=== PATIENT | female | born 1990 | race Caucasian/White ===

== ENCOUNTER 2018-06-27 15:56 | Outpatient (REF) | payer OTHER, SELFPAY ==
--- NOTE | 2018-06-27 14:00 | CER_PTH ---
PATIENT: Angelina Interiano LOC: [facility] U#:[id number] AGE/SX: 27/F ROOM: RE06/27/[address]: Renata Mao : 1990 BED: DIS: 06/27/2018 SPEC #: [id number] RECD: 06/27/18 18:04 STATUS: CICI REDre #: [id number] ANAIS: 06/27/18 14:[address]: Renata Mao DEPT: Surgical Specimen RECD BY: Jocelynn Vega ENTERED: 06/27/18 18:05 SP TYPE: CER JOCELYN DR: Unknown,Unknown Tissues: 1 - CERVICAL BIOPSY 2 - CERVICAL BIOPSY 3 - ENDOCERVICAL BX/CURRETTE Procedures: GROSS AND MICRO LEVEL 4 Comments: [id number]
== END 2018-06-27 15:57 ==
LOC: LBN 15:56
PROVIDERS: Visit Provider Obstetrics & Gynecology Gynecology
DX: N72 Inflammatory disease of cervix uteri (principal); Z87.410 Personal history of cervical dysplasia
CPT/HCPCS: 88305

== ENCOUNTER 2019-03-12 11:42 | Outpatient (REF) | payer OTHER, SELFPAY ==
--- NOTE | 2019-03-12 10:40 | PAPFT_PTH ---
PATIENT: Angelina Interiano LOC: [facility] U#:[id number] AGE/SX: 28/F ROOM: RE03/12/[address]: Renata Mao : 1990 BED: DIS: 03/12/2019 SPEC #: [id number] RECD: 03/12/19 13:03 STATUS: CICI REDre #: [id number] ANAIS: 03/12/19 10:[address]: Renata Mao DEPT: [facility] Cytology RECD BY: Jocelynn Vega ENTERED: 03/12/19 13:03 SP TYPE: PAPFT JOCELYN DR: Unknown,Unknown Tissues: 1 - CX/ENDOCX FOR PAP SMEARS Procedures: PAP THIN PREP/UVM Screening HPV DNA PROBE Comments: [id number]
[2019-03-13 14:25] LABS: Chlamydia Result Negative; GC Result Negative; Specimen Description CERVIX
== END 2019-03-12 12:02 ==
LOC: LBN 11:42
PROVIDERS: Visit Provider Obstetrics & Gynecology Gynecology
DX: Z11.3 Encounter for screening for infections with a predominantly sexual mode of transmission (principal); Z12.4 Encounter for screening for malignant neoplasm of cervix; Z11.51 Encounter for screening for human papillomavirus (HPV)
CPT/HCPCS: 87491; 87591; 88142; 87624

== ENCOUNTER 2019-07-30 16:47 | Outpatient (REF) | payer OTHER, SELFPAY | END 2019-07-30 17:07 | LOC: LBN 16:47 | PROVIDERS: Visit Provider Nurse Practitioner Family | DX: R30.0 Dysuria (principal) | CPT/HCPCS: 87086 ==

== ENCOUNTER 2020-05-06 11:51 | Outpatient (REF) | payer OTHER, SELFPAY ==
--- NOTE | 2020-05-06 11:00 | PAPFT_PTH ---
PATIENT: Angelina Interiano LOC: [facility] U#:[id number] AGE/SX: 29/F ROOM: RE05/06/[address]: Maddi Mejía NP : 1990 BED: DIS: 05/06/2020 SPEC #: [id number] RECD: 05/06/20 17:36 STATUS: CICI HAAS #: [id number] ANAIS: 05/06/20 11:[address]: Maddi Mejía NP DEPT: [facility] Cytology RECD BY: Jocelynn Vega Tissues: 1 - CX/ENDOCX FOR PAP SMEARS Procedures: PAP THIN PREP/UVM Screening Comments: [id number] (CHLAMYDIA/GC)
[2020-05-08 07:09] LABS: Chlamydia Result Negative (Negative); GC Result Negative (Negative)
== END 2020-05-06 12:11 ==
LOC: LBN 11:51
PROVIDERS: Visit Provider Nurse Practitioner Women's Health
DX: Z12.4 Encounter for screening for malignant neoplasm of cervix (principal)
CPT/HCPCS: 87491; 87591; 88142

== ENCOUNTER 2020-10-06 00:24 | Outpatient (CLI) | payer OTHER, SELFPAY ==
--- NOTE | 2020-10-06 | DI.MRI_ITS ---
EXAM: MR LOWER EXTREMITY LT WO CLINICAL HISTORY: LT TIBIAL SESAMOID FX,PAIN LT FOOT, 1ST MPJ. TECHNIQUE: Multiplanar multisequence MRI was performed. COMPARISON: No exams were available for comparison FINDINGS: Skin: No ulcers evident in the field of view of this study. No subcutaneous tracts. Soft tissues/tendons: No tendon tears nor tenosynovitis evident. No evidence of interdigital Daugherty' s neuroma. Articulations: No evidence of para-articular ganglions. There is a moderate-sized joint effusion in the great toe metatarsophalangeal joint, not associated degenerative changes. There are no erosions at this level. No degenerative subarticular cyst. No osteophytes. There is also small effusion in the interphalangeal joint of the great toe, also not associated with a rosea ends nor osteophytes. Visualized Lisfranc joint appears unremarkable. Osseous: There no metatarsal fractures nor significant intraosseous signal abnormality in the cuneifo rm and visualized cuboid bones nor in the phalanges. The more medial of the 2 sesamoid bones subjacent of the great toe metatarsal head exhibits a small c left but no fracture. The more lateral of these 2 sesamoid bones appears smaller and T1 hypointense. There is no high signal evident within this bone on the water sensitive fat-suppressed sequences. No evidence of obvious turf toe findings. IMPRESSION: 1. At the great toe metatarsophalangeal joint level there is a joint effusion with no erosions nor os teophytes nor intraosseous edema in the metatarsal head and neck. However, more lateral of the 2 ses amoid bones subjacent to the great toe metatarsal head appears devoid of normal signal and smaller th an the other more medially located sesamoid bone at this level.. Correlation with any prior surgery in this area is recommended. Other consideration would be for avascular necrosis of the sesamoid. 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 2. Small joint effusion the interphalangeal joint of the great toe. No erosions or osteophytes at th is level. 3. Main Lisfranc joint appears unremarkable. DATA REPOSITORY:
== END 2020-10-06 00:44 ==
PROVIDERS: PCP Family Medicine; Visit Provider Podiatrist
DX: M25.475 Effusion, left foot (principal); M25.572 Pain in left ankle and joints of left foot
CPT/HCPCS: 73718

== ENCOUNTER 2021-05-21 04:11 | Emergency (ER) | payer OTHER, SELFPAY ==
[2021-05-21 04:15] VITALS: BP 132/76; PULSE 109; RESP 16; TEMP 36.7; O2SAT 97
[2021-05-21] MEDS: Normal Saline 1,000 ML 1000 ML IV (04:23)
--- NOTE | 2021-05-21 04:26 | W.ED.GENAD ---
Discharge Plan Disposition Patient Disposition: HOME Condition: Good Discharge Details Clinical Impression: Nausea and vomiting Primary Care Provider: Rony Dubose ED Provider: Danial Leung Home Meds and New Rx's Prescriptions: New doxylamine-pyridoxine (vit B6) [Diclegis] 10-10 mg tablet,delayed release (DR/EC) 1 tab PO DAILY Qty: 20 RF: 0 Continued prenat.vits,juan,[id number] Tablet 1 tab PO DAILY RF: 0 Discharge Instructions Instructions: Acute Nausea and Vomiting (ED) Additional Instructions: At this time you have been rehydrated. A prescription for the nausea medication for likely just has been sent to your pharmacy. Please drink plenty of fluids, avoid any spicy or greasy foods. Follow-up closely with your OB provider. If you notice any worsening of your symptoms, or any new symptoms such as vomiting, diarrhea, fever, chills, shortness of breath, chest pain, numbness, weakness, or fainting , please return immediately to the emergency department for reevaluation. Please follow up with your primary care provider as soon as possible for reassessment and reevaluation. As always, it was a pleasure participating in your medical care today. Referrals: Rony Dubose DO [Primary Care Provider] - Medical Decision Making This is a very pleasant 30-year-old female who is a G1, P0 currently 10 weeks who presents today for evaluation of nausea and vomiting. Patient states that since early this afternoon she has had persistent vomiting, and has been unable to keep down even a sip of water. She does note that she interacted with a small child that had similar symptoms recently, but she is uncertain if this is related to her or contact with a child. She denies any abdominal pain, she denies any vaginal bleeding or discharge. She denies any other complaints. She did contact the manufacturing electrician on-call who did recommend that she come here for further assessment. No other complaints at this time. No other modifying factors. Physical exam demonstrates dry mucous membranes, heart rate slightly elevated, no abdominal tenderness whatsoever. No pelvic tenderness whatsoever. Symptoms consistent with either mild viral gastroenteritis causing her nausea and vomiting versus morning sickness/hyperemesis gravidarum. We will gently rehydrate, give pyridoxine, metoclopramide, monitor closely and reassess. 40 5 AM Laboratory work-up has returned and is notably unremarkable. Minimal white count, likely reactive from the vomiting. Electrolytes stable, renal function good. Anion gap only 12.6. Patient was rehydrated with 1 L of normal saline and 1 L of lactated Ringer's. She is feeling extremely better now. She tolerated p.o. for little ramya nataly and 6 lilly crackers. No vomiting. She feels well and is requesting to go home. Patient will be given a prescription for diplegia sent to her local pharmacy. Discussed the importance of close OB follow-up. Discussed red flags for which to return. I have extensively reviewed the treatment plan and discharge instructions with the patient. I have addressed all patient concerns at this time. The patient was made aware of what symptoms to monitor for that would warrant a return to the emergency department. Discussed the plan with the patient, they demonstrate verbal understanding and agreement with our assessment and plan at this time. The documentation in this chart was dictated using [employer] dictation software. Please excuse any dictation errors. HPI General Date/Time Provider Initiated Documentation: 05/21/21 04:12. HPI Narrative: This is a very pleasant 30-year-old female who is a G1, P0 currently 10 weeks who presents today for evaluation of nausea and vomiting. Patient states that since early this afternoon she has had persistent vomiting, and has been unable to keep down even a sip of water. She does note that she interacted with a small child that had similar symptoms recently, but she is uncertain if this is related to her or contact with a child. She denies any abdominal pain, she denies any vaginal bleeding or discharge. She denies any other complaints. She did contact the manufacturing electrician on-call who did recommend that she come here for further assessment. No other complaints at this time. No other modifying factors. Related Data Home Medications Medication Instructions Recorded Confirmed prenat.vits,juan,[id number]-[id number]-vyfbb 1 tab PO DAILY 05/01/21 05/21/21 doxylamine-pyridoxine (vit B6) 1 tab PO DAILY #20 tab 05/21/21 [Diclegis] Previous Rx's Medication Instructions Recorded doxylamine-pyridoxine (vit B6) 1 tab PO DAILY #20 tab 05/21/21 [Diclegis] Allergies Allergy/AdvReac Type Severity Reaction Status Date / Time No Known Allergies Allergy Verified 05/21/21 04:18 General Stated Complaint: Nausea/Vomit/Diar KENDALL: 3 Review of Systems All systems reviewed & are unremarkable except as noted in HPI and below PFSH Medical History Abnormal Pap smear of cervix 2016 ASCUS. HR 16,18 Neg. Other HR+ 2017 LGSIL 02/2018 HR 16,18 Neg. Other HR+ 05/2018 Colpo Bx: No dysplasia. Abnormal Papanicolaou smear of cervix with positive human papilloma virus (HPV) test (06/27/18) 2015 ASCUS. HR 16,18 Neg. Other HR+ 2016 LGSIL 02/2018 HR 16,18 Neg. Other HR+ 05/2018 Colpo Bx____ Contraception Nexplanon - facial acne. 2018 NuvaRing. 2019 considering Kyleena IUD. Uses contraception (06/27/18) NuvaRing. Surgical History ankle surgery 19 years old Tooth extraction 14 years old Family History Paternal Grandfather Colon cancer Liver cancer Maternal Uncle Liver cancer Colon cancer Social History Smoking/Tobacco Use Status: Never Second Hand Exposure: No Smoking risk assessment performed?: Yes Alcohol Intake: current Alcohol Intake frequency: a few times a month Alcohol type: beer and wine Counseling provided: other Details: never drives and drinks and never drives with someone who has been drinking Drug use: Never Substance use type: does not use Details: No IV Drug Use. Reports no alcohol in last 10 weeks since became pregant. 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 Female Reproductive History Menstrual Age of Menarche: 14 control method: vaginal ring History History 1 Para 0 Hx # Term Pregnancies 0 Multiple births 0 Hx # Pregnancies 0 Ectopic pregnancies 0 AB induced 0 Hx Number of Living Children 0 AB spontaneous 0 Exam Narrative Exam Narrative: 1.Const: Well-nourished, Well-developed, appearing stated age 2.Eyes: PERRL, no conjunctival injection, and symmetrical lids. 3.ENT: Atraumatic external nose and ears. Notably dry MM. Neck: Symmetric, trachea midline, No thyromegaly. 4.CVS: +S1/S2, No murmurs or gallops. Peripheral pulses 2+ and equal in all extremities. Brisk capillary refill in all extremities. 5.RESP: Unlabored respiratory effort. Clear to auscultation bilaterally. No wheezes rales or rhonchi 6.GI: Soft, Nontender/Nondistended, No hepatosplenomegaly. No guarding or rebound. 7.MSK: Normocephalic/Atraumatic, Extremities w/o deformity or ttp No cyanosis or clubbing, Normal movement of all extremities 8.Skin: Warm, Dry. No rashes or lesions. 9.Neuro: link cutter II-XII grossly intact. Sensation grossly intact, no focal neurologic deficits. 10.Psych: (AAO) x3. Appropriate mood and affect Course Vital Signs Vital signs: Vital Signs Temperature 36.7 C 05/21/21 04:15 Pulse 109 H 05/21/21 04:15 Respiratory Rate 16 05/21/21 04:15 Blood Pressure 132/76 05/21/21 04:15 Pulse Oximetry 97 05/21/21 04:15 Temperature 36.7 C 05/21/21 04:15 Temperature Source Skin 05/21/21 04:15 Pulse 109 H 05/21/21 04:15 Respiratory Rate 16 05/21/21 04:15 Respiratory Effort Non-Labored 05/21/21 04:19 Blood Pressure 132/76 05/21/21 04:15 Blood Pressure Position Supine 05/21/21 04:15 Pulse Oximetry 97 05/21/21 04:15 Oxygen Delivery Method Room Air 05/21/21 04:15 Oxygen Flow Rate 0 05/21/21 04:15
[2021-05-21 04:28] LABS: Abs Immature Grans 0.06 10^3/uL (0.0-0.06); Absolute Monocyte Count 0.38 10^3/uL (0.1-0.8); Basophils % 0.2; HCT 39.3 % (36.0-46.0); HGB 13.7 g/dL (11.2-15.7); Immature Grans % 0.5; Lymphocytes % 4.5; MCH 30.9 pg (27.0-33.0); MCHC 34.9 % (32.0-36.0); MCV 88.7 fL (80-95); MPV 9.6 fL (8.0-11.0); Neutrophils % 91.8; Nucleated RBC 0 %; Platelet Count 209 10^3/uL (130-400); RBC 4.43 10^6/uL (3.93-5.22); RDW 11.5 % (11.7-14.6); RDW-SD 37.2 fL; WBC 12.56 10^3/uL (4.4-10.8)
[2021-05-21 04:29] LABS: Absolute Basophil Count 0.03 10^3/uL (0.0-0.2); Absolute Lymphocyte Count 0.57 10^3/uL (1.2-3.4); Absolute Neutrophil Count 11.53 10^3/uL (1.2-6.7)
[2021-05-21] MEDS: Metoclopramide 10 MG/2 ML VIAL IVP (04:32)
[2021-05-21] MEDS: Lactated Ringers 1,000 ML 1000 ML IV (04:34)
[2021-05-21 04:41] LABS: ALT 22 U/L (14-59); AST 14 U/L (15-37); Albumin 3.3 g/dL (3.4-5.0); Alkaline Phosphatase 71 U/L (46-116); Anion Gap 12.6 mmol/L (3-11); BUN 10 mg/dL (7-18); Bilirubin, Total 0.7 mg/dL (0.2-1.0); CO2 22.4 mmol/L (21.0-32.0); CREATININE 0.8 mg/dL (0.55-1.02); Calcium 8.8 mg/dL (8.5-10.1); Chloride 102 mmol/L (98-107); Glucose 128 mg/dL (74-106); Lipase 83 U/L (73-393); Potassium 3.6 mmol/L (3.5-5.1); Sodium 137 mmol/L (136-145); Total Protein 7.3 g/dL (6.4-8.2)
[2021-05-21 05:19] VITALS: BP 114/74; PULSE 104; RESP 16; O2SAT 99
== END 2021-05-21 06:09 | disposition home or self-care (01) ==
PROVIDERS: Emergency Provider Student in an Organized Health Care Education/Training Program; PCP Family Medicine
DX: O21.9 Vomiting of pregnancy, unspecified (principal)
CPT/HCPCS: 36415; 80053; 83690; 96361; 96374; 99284; 85025; 99283; J2765

== ENCOUNTER 2021-06-09 03:44 | Outpatient (CLI) | payer OTHER, SELFPAY ==
[2021-06-09 15:34] LABS: Glucose,1 Hr (Glucola) 115 mg/dL (80-140)
[2021-06-09 16:11] LABS: Abs Immature Grans 0.05 10^3/uL (0.0-0.06); Absolute Basophil Count 0.03 10^3/uL (0.0-0.2); Absolute Eosinophil Count 0.03 10^3/uL (0.0-0.7); Absolute Lymphocyte Count 2.43 10^3/uL (1.2-3.4); Absolute Monocyte Count 0.61 10^3/uL (0.1-0.8); Absolute Neutrophil Count 5.82 10^3/uL (1.2-6.7); Basophils % 0.3; Eosinophils % 0.3; HCT 35.1 % (36.0-46.0); HGB 12.1 g/dL (11.2-15.7); Immature Grans % 0.6; Lymphocytes % 27.1; MCH 30.6 pg (27.0-33.0); MCHC 34.5 % (32.0-36.0); MCV 88.6 fL (80-95); MPV 10.9 fL (8.0-11.0); Monocytes % 6.8; Neutrophils % 64.9; Nucleated RBC 0 %; Platelet Count 233 10^3/uL (130-400); RBC 3.96 10^6/uL (3.93-5.22); RDW 11.7 % (11.7-14.6); RDW-SD 37.9 fL; WBC 8.97 10^3/uL (4.4-10.8)
[2021-06-11 09:10] LABS: Hepatitis B Surface Ag Negative (Negative)
[2021-06-11 10:00] LABS: HIV-1/2 Ag & Ab Screen Negative (Negative)
[2021-06-11 10:19] LABS: Hepatitis C Ab w Rflx HCV PCR Negative (Negative)
[2021-06-11 11:55] LABS: Rubella IgG Ab (UVM) Negative (See Note)
[2021-06-11 14:13] LABS: Syphilis Total Ab w/Reflex Nonreactive (Nonreactive)
[2021-06-11 15:37] LABS: Varicella IgG Antibody Equivocal (See Note)
[2021-06-15 16:56] LABS: Specimen WB Whole Blood
[2021-06-18 22:04] LABS: Result Summary NEGATIVE; Specimen WB Whole Blood
== END 2021-06-09 03:45 | disposition home or self-care (01) ==
PROVIDERS: Advanced Practice Midwife; PCP Family Medicine; Visit Provider Advanced Practice Midwife
DX: Z34.91 Encounter for supervision of normal pregnancy, unspecified, first trimester (principal); Z36.89 Encounter for other specified antenatal screening; Z11.4 Encounter for screening for human immunodeficiency virus [HIV]; Z11.59 Encounter for screening for other viral diseases; Z01.84 Encounter for antibody response examination
CPT/HCPCS: 36415; 81329; 82950; 86787; 86803; 86850; 86900; 86901; 87340; 87389; 81220; 85025; 86762; 86780

== ENCOUNTER 2021-06-09 16:31 | Outpatient (REF) | payer OTHER, SELFPAY ==
--- NOTE | 2021-06-09 14:40 | PAPFT_PTH ---
PATIENT: Angelina Interiano LOC: [facility] U#:[id number] AGE/SX: 30/F ROOM: RE06/09/[address]: Krystin Campbell : 1990 BED: DIS: 06/09/2021 SPEC #: [id number] RECD: 06/09/21 16:36 STATUS: CICI REDre #: [id number] ANAIS: 06/09/21 14:[address]: Krystin Campbell DEPT: [facility] Cytology RECD BY: Jocelynn Vega ENTERED: 06/09/21 16:36 SP TYPE: PAPFT OTHR DR: Rony Dubose DO Tissues: 1 - CX/ENDOCX FOR PAP SMEARS Procedures: PAP THIN PREP/UVM Screening Comments: [id number]
[2021-06-09 19:16] LABS: *AMPHETAMINES SCREEN URINE Negative (Negative); *BARBITURATES SCREEN URINE Negative (Negative); *BENZODIAZEPINES SCREEN URINE Negative (Negative); Cannabinoids THC Negative (Negative); Cocaine Screen,Urine Negative (Negative); METHADONE URINE SCREEN Negative (Negative); OPIATES URINE SCREEN Negative (Negative)
[2021-06-09 19:21] LABS: Tricyclic Antidepressants Negative (Negative)
[2021-06-11 15:15] LABS: Chlamydia Result Negative (Negative); GC Result Negative (Negative)
[2021-06-13 10:46] LABS: Buprenorphine Negative ng/mL (Cutoff: 5.0); Norbuprenorphine Negative ng/mL (Cutoff: 2.5)
== END 2021-06-09 16:32 | disposition home or self-care (01) ==
LOC: LBN 16:31
PROVIDERS: PCP Family Medicine; Visit Provider Advanced Practice Midwife
DX: Z34.91 Encounter for supervision of normal pregnancy, unspecified, first trimester (principal); Z11.3 Encounter for screening for infections with a predominantly sexual mode of transmission; Z12.4 Encounter for screening for malignant neoplasm of cervix; Z3A.12 12 weeks gestation of pregnancy
CPT/HCPCS: 80307; 87491; 87591; 88142; 87086

== ENCOUNTER 2021-09-29 02:33 | Outpatient (CLI) | payer OTHER, SELFPAY ==
[2021-09-29 10:56] LABS: HCT 32.9 % (36.0-46.0); MCH 30.4 pg (27.0-33.0); MCHC 33.4 % (32.0-36.0); MCV 90.9 fL (80-95); MPV 9.4 fL (8.0-11.0); Platelet Count 207 10^3/uL (130-400); RBC 3.62 10^6/uL (3.93-5.22); RDW 11.9 % (11.7-14.6); WBC 11.01 10^3/uL (4.4-10.8)
[2021-09-29 11:04] LABS: Glucose,1 Hr (Glucola) 136 mg/dL (80-140)
== END 2021-09-29 02:34 | disposition home or self-care (01) ==
LOC: LBO 02:33
PROVIDERS: Advanced Practice Midwife; PCP Family Medicine; Visit Provider Advanced Practice Midwife
DX: Z34.93 Encounter for supervision of normal pregnancy, unspecified, third trimester (principal)
CPT/HCPCS: 36415; 82950; 85027

== ENCOUNTER 2021-10-07 02:04 | Outpatient (CLI) | payer OTHER, SELFPAY ==
[2021-10-07 10:33] LABS: Glucose 1 Hour 136 mg/dL
[2021-10-07 11:18] LABS: Glucose 3 Hour 118 mg/dL
== END 2021-10-07 02:05 | disposition home or self-care (01) ==
LOC: LBO 02:08
PROVIDERS: Advanced Practice Midwife; PCP Family Medicine; Visit Provider Advanced Practice Midwife
DX: Z34.93 Encounter for supervision of normal pregnancy, unspecified, third trimester (principal)
CPT/HCPCS: 36415; 82951

== ENCOUNTER 2021-10-26 02:38 | Outpatient (CLI) | payer OTHER, SELFPAY ==
--- NOTE | 2021-10-26 07:30 | DI.US_ITS ---
Exam(s) US OB SALVADOR WEIGHT EXAM: US OB SALVADOR WEIGHT CLINICAL HISTORY: F/u sga. size. TECHNIQUE: Transabdominal obstetrical ultrasound was performed. COMPARISON: US US OB 2-3 TRIMESTER from 08/04/2021 FINDINGS: There is a single viable intrauterine gestation with cardiac activity identified-147 bpm The fetus is presently in cephalic position . Amniotic fluid: There is a normal amount of amniotic fluid with an SALVADOR of 14.3cm. Placental location: The placenta is anterior grade 1,with no evidence of placenta previa. Dating parameters place this at approximately 33 weeks and 6 days gestational age, implying SEBASTIAN of December 08, 1999. BPD measures 34 weeks and 1 day HC measures 35 weeks and 2 days AC measures 33 weeks and 1 day FL measures 32 weeks and 6 days Estimated weight is 2171 gm-4 pounds, 13 ounces Fetus is at the 73rd percentile on the Hadlock scale. IMPRESSION:: Viable 3rd trimester gestation, as described above. DATA REPOSITORY:
== END 2021-10-26 02:58 ==
PROVIDERS: PCP Family Medicine; Visit Provider Advanced Practice Midwife
DX: Z34.93 Encounter for supervision of normal pregnancy, unspecified, third trimester (principal)
CPT/HCPCS: 76816